=== PATIENT | male | born 1960 | race Caucasian/White ===

== ENCOUNTER 2016-10-28 14:00 | Emergency (ER) | payer OTHER ==
[2016-10-28 15:21] VITALS: TEMP 97.9
[2016-10-28] MEDS ORDERED: TDAP ADULT 0.5 ML VIAL (BOOSTRIX) IM ONE (15:36)
[2016-10-28] MEDS ORDERED: LIDOCAINE 1% 5 ML SDV ONE (15:37)
[2016-10-28] MEDS ORDERED: BUPIVACAINE 0.5% 10 ML SDV ONE (15:37)
[2016-10-28 17:21] VITALS: PULSE 72; RESP 18; O2SAT 94
--- NOTE | 2016-10-28 17:22 | UCPHY ---
H & P Time Seen by Provider: 10/28/16 15:22 Patient Type: New HPI/ROS: CHIEF COMPLAINT: right great toe injury HISTORY OF PRESENT ILLNESS: 56-year-old male presents with injury to the right great toe. The patient was moving something and the box lifted the toenail off his right great toe. The incident happened just prior to arrival. He believes his tetanus shot is current. He was able to control the bleeding with firm direct pressure. ROS: Denies numbness or tingling in his toes, pain in the right ankle or calf. Past Medical/Surgical History: Hypertension Social History: Has a life partner and lives in [place] Smoking Status: Never smoked Physical Exam: On examination the patient has right great toe partial avulsion with the most medial aspect lifted out of the eponychial fold. No active bleeding noted. Normal sensation to light touch with normal 2 point discrimination. No palpable bony tenderness. The other toes appear on injured. No signs of infection. Constitutional: Initial Vital Signs Temperature (C) 36.6 C 10/28/16 15:14 Heart Rate 65 10/28/16 15:14 Respiratory Rate 16 10/28/16 15:14 O2 Sat (%) 93 10/28/16 15:14 O2 Delivery Mode Room Air Allergies/Adverse Reactions: Penicillins Allergy (Verified 10/28/16 15:11) Home Medications: Medication Instructions Recorded Allopurinol [Allopurinol 300 MG 300 mg PO DAILY 05/01/12 (RX)] Aspirin [Aspir 81] 05/01/12 Ibuprofen 600 mg PO 05/01/12 Actos 10/28/16 Fish Oil 10/28/16 Lisinopril 10/28/16 Metformin HCl 10/28/16 oxyCODONE/APAP 5/325 [Percocet 1 - 2 tab PO Q4-6PRN PRN #15 tab 10/28/16 5/325] MDM/Departure - MDM Procedures: Verbal consent was obtained from the patient. The right great toe was anesthetized using digital block using 1% lidocaine without epinephrine 0.5% bupivacaine without epinephrine. The wound was irrigated with saline, draped and explored to its base with a gloved finger. There were no deep structures involved. No repairable laceration to nail bed noted. No tendon injury was identified. The wound was thoroughly irrigated. The nail was placed back under the eponychial fold and sutured in place with 2 simple interrupted sutures. The wound repair was simple. The procedure was performed by myself. Medications Given: Discontinued Medications Diphtheria/Tetanus/Acell Pertussis (Boostrix) 0.5 ml IM .ONCE ONE Stop: 10/28/16 15:37 Last Admin: 10/28/16 15:54 Dose: 0.5 ml ED Course/Re-evaluation: 56-year-old male presents with right great toe injury. Please see procedure note. His tetanus shot was current. He was given wound care precautions. - Depart Disposition: Home, Routine, Self-Care Clinical Impression: Nail avulsion great toe Condition: Good Instructions: Nail Avulsion (ED), Acute Wound Care (ED) Additional Instructions: Wound Care Follow-Up: Removal of sutures in 10-14 days. Suture removal is complimentary in uncomplicated cases. Infection or abnormal findings would require reevaluation by the MD. In that case, you may be billed. Return if you notice any signs or symptoms of infection such as redness, swelling, increased pain, fever, purulent drainage. Ibuprofen 600 mg every 8 hours as needed for pain. Elevate your foot for comfort and to help reduce swelling and pain. Percocet for severe pain as directed to help you sleep. Prescriptions: oxyCODONE/APAP 5/325 [Percocet 5/325] 1 - 2 tab PO Q4-6PRN PRN #15 tab PRN Reason: For Moderate To Severe Pain Referrals: Rey Moyer MD [Primary Care Provider] - As per Instructions - PQRS PQRS Measurement: Not applicable
== END 2016-10-28 17:34 | disposition home or self-care (01) ==
LOC: CED 14:00
PROC: 0HQRXZZ Repair Toe Nail, External Approach (ICD-10-PCS; principal; 2016-10-28)
DX: S90.931A Unspecified superficial injury of right great toe, initial encounter (principal)
CPT/HCPCS: 12001-PO; 99203-PO; G0463-PO

== ENCOUNTER 2016-11-08 12:54 | Emergency (ER) | payer OTHER ==
[2016-11-08 13:04] VITALS: BP 167/72; PULSE 78; RESP 20; TEMP 97.3; O2SAT 95
--- NOTE | 2016-11-08 13:19 | UCPHY ---
H & P Time Seen by Provider: 11/08/16 13:05 Patient Type: Established HPI/ROS: This patient slipped on the ice yesterday landing on his right lateral lower ribs was arm tucked in against his ribs. He felt immediate moderate pain is at times and ongoing moderate pain at baseline becomes severe with a deep breath or cough. He also reports URI symptoms started over the past few days characterized by coryza and occasional dry cough. ROS: No high fevers or chills. HEENT no injury. No headache. Musculoskeletal no neck or back injury from the fall. No new extremity injuries. Pulmonary: No shortness of breath. Cardiovascular: No lightheadedness. GI: No belly pain. 10 point ROS is otherwise negative. Past Medical/Surgical History: Morbid obesity Smoking Status: Never smoked Physical Exam: General Appearance: Pleasant morbidly obese 48-year-old male Alert, no distress. Eyes: Pupils equal and round no pallor or injection. ENT, Mouth: Mucous membranes moist. Respiratory: There are no retractions, lungs are clear to auscultation. Chest wall exam is notable for ecchymosis 3 cm x 9 cm to the right 10th rib her so laterally on the right side with associated tenderness. No obvious crepitance. Patient also has mild ecchymosis to the right 5th rib or so with tenderness but no crepitance. Cardiovascular: Regular rate and rhythm. Gastrointestinal: Normoactive, soft, obese, nontender Neurological: Alert with no focal deficits. Skin: Warm and dry, no rashes. Musculoskeletal: Neck is supple nontender. Extremities are symmetrical, full range of motion. Psychiatric: Mood and affect are normal. DIFFERENTIAL DIAGNOSIS: After history and physical exam differential diagnosis was considered for rib fracture, hemothorax, pneumothorax Constitutional: Initial Vital Signs Temperature (C) 36.3 C 11/08/16 13:00 Heart Rate 78 11/08/16 13:00 Respiratory Rate 20 11/08/16 13:00 Blood Pressure 167/72 H 11/08/16 13:00 O2 Sat (%) 95 11/08/16 13:00 O2 Delivery Mode Room Air Allergies/Adverse Reactions: Penicillins Allergy (Verified 11/08/16 12:58) Home Medications: Medication Instructions Recorded Allopurinol [Allopurinol 300 MG 300 mg PO DAILY 05/01/12 (RX)] Aspirin [Aspir 81] 05/01/12 Ibuprofen 600 mg PO 05/01/12 Actos 10/28/16 Fish Oil 10/28/16 Lisinopril 10/28/16 Metformin HCl 10/28/16 oxyCODONE/APAP 5/325 [Percocet 1 - 2 tab PO Q4-6PRN PRN #15 tab 10/28/16 5/325] Albuterol Hfa Anes Only [Proair 2 puffs IH Q4 PRN #1 mdi 11/08/16 Hfa Icu (*)] oxyCODONE/APAP 5/325 [Percocet 1 - 2 tab PO Q4-6PRN PRN #20 tab 11/08/16 5/325 (*)] MDM/Departure - MDM Diagnostics: Chest x-ray: Mild basilar atelectasis. I appreciate no rib fractures. Pneumothorax and no hemothorax by my interpretation ED Course/Re-evaluation: I counseled the patient regarding rib injury. He also has findings consistent with laryngitis and mild viral bronchitis. Chest x-ray reveals no concerning findings. - Depart Disposition: Home, Routine, Self-Care Clinical Impression: Rib injury, Viral laryngitis, Cough Condition: Good Instructions: Rib Fracture (ED) Additional Instructions: Diagnoses: 1. Rib injury 2. Viral Laryngitis 3. Cough Plan: Humidifier Albuterol inhaler for cough, wheeze or shortness of breath Naproxen 2 tabs 2 times a day and Tylenol or Percocet for pain control as needed. No driving, alcohol or come Percocet Take a deep breath every 10-15 minutes to prevent to secondary complication of pneumonia from a rib injury. Return for any significant worsening despite the treatment plan Prescriptions: oxyCODONE/APAP 5/325 [Percocet 5/325 (*)] 1 - 2 tab PO Q4-6PRN PRN #20 tab PRN Reason: Pain Albuterol Hfa Anes Only [Proair Hfa Icu (*)] 2 puffs IH Q4 PRN #1 mdi PRN Reason: Wheezing - PQRS PQRS Measurement: NA
--- NOTE | 2016-11-08 14:54 | DX ---
PA and lateral chest. November 08, 2016. Clinical History: Right-sided chest pain after trauma. Comparison Study: None available. Findings: The lungs are clear. No pleural disease identified. Heart size is normal. No pneumothorax identified. No rib fracture identified.. Impression: Negative trauma chest..
== END 2016-11-08 14:20 | disposition home or self-care (01) ==
LOC: CED 12:54
DX: S29.9XXA Unspecified injury of thorax, initial encounter (principal); J04.0 Acute laryngitis; W00.0XXA Fall on same level due to ice and snow, initial encounter
CPT/HCPCS: 71020-PO; 99214-PO; G0463-PO

== ENCOUNTER → 2018-01-02 | Outpatient (CLI) | payer OTHER ==
[~2018-01-02] MED LIST: IOPAMIDOL (ISOVUE-300) 100 ML BTL ONE
== END ==
LOC: CIMAGING 09:33
PROVIDERS: ATTEND Internal Medicine Gastroenterology
DX: K74.60 Unspecified cirrhosis of liver (principal); K76.6 Portal hypertension
CPT/HCPCS: 74160-PO; Q9967